=== PATIENT | female | born 2000 | race Caucasian/White ===

== ENCOUNTER 2021-02-07 04:35 | Emergency (ER) | payer MEDICAID ==
--- NOTE | 2021-02-07 05:38 | EDM.PDOC ---
ED HPI GENERAL MEDICAL PROBLEM - General Chief Complaint: General Stated Complaint: abd pain Time Seen by Provider: 02/07/21 05:09 Source of Information: Reports: Patient, Significant Other History Limitations: Reports: No Limitations - History of Present Illness INITIAL COMMENTS - FREE TEXT/NARRATIVE: Patient presents with pain in the middle to upper abdomen that started yesterday afternoon but escalated to 10/10 during the night, about 2 hours ago. She got up and vomited once. That helped some and then on the way here it improved a little more. Pain is now 5/5 and she is not having any more nausea or vomiting. She is 5 months into her first . She denies bleeding or spotting. She says the has been going very well and she hasn't had any problems. She had a routine ultrasound about 10 days ago. For the last few weeks she feels the baby move frequently and that is continuing as normal, currently. Appetite has been good and she ate as usual last night. She denies fever, dysuria, diarrhea or constipation. Abdomen Pain Score (Numeric/FACES): 5 - Related Data Allergies Allergy/AdvReac Type Severity Reaction Status Date / Time No Known Allergies Allergy Verified 02/07/21 04:43 Past Medical History HEENT History: Reports: None Cardiovascular History: Reports: Other (See Below) Other Cardiovascular History: Heart palpitations for about a year on Metoprolol Respiratory History: Reports: None Gastrointestinal History: Reports: None Genitourinary History: Reports: None [employer]OYEE [employer] History: Reports: Musculoskeletal History: Reports: None Neurological History: Reports: None Psychiatric History: Reports: None Endocrine/Metabolic History: Reports: None Hematologic History: Reports: None Oncologic (Cancer) History: Reports: None Dermatologic History: Reports: None - Infectious Disease History Infectious Disease History: Reports: None - Past Surgical History Head Surgeries/Procedures: Reports: None HEENT Surgical History: Reports: None Cardiovascular Surgical History: Reports: None Social & Family History - Tobacco Use Tobacco Use Status *Q: Never Tobacco User - Caffeine Use Caffeine Use: Reports: Soda - Recreational Drug Use Recreational Drug Use: No ED ROS GENERAL - Review of Systems Review Of Systems: See Below Constitutional: Denies: Fever, Chills, Malaise, Weakness HEENT: Denies: Throat Pain, Vision Change Respiratory: Denies: Shortness of Breath, Cough Cardiovascular: Denies: Chest Pain, Lightheadedness, Syncope GI/Abdominal: Reports: Abdominal Pain, Vomiting (once). Denies: Constipation, Diarrhea, Nausea (gone now) : Denies: Dysuria, Flank Pain, Hematuria Musculoskeletal: Reports: No Symptoms Skin: Denies: Cyanosis, Jaundice, Mottled, Pallor, Diaphoresis Neurological: Denies: Confusion, Dizziness, Headache, Seizure, Syncope, Trouble Speaking, Difficulty Walking Psychiatric: Denies: Agitation, Anxiety, Confusion ED EXAM, GENERAL - Physical Exam Exam: See Below Exam Limited By: No Limitations General Appearance: Alert, WD/WN, No Apparent Distress Eye Exam: Bilateral Eye: EOMI, Normal Inspection, PERRL Ears: Normal External Exam, Hearing Grossly Normal Nose: Normal Inspection, No Blood Throat/Mouth: Normal Inspection, Normal Lips, Normal Voice, No Airway Compromise Head: Atraumatic, Normocephalic Neck: Normal Inspection, Full Range of Motion Respiratory/Chest: No Respiratory Distress, Lungs Clear, Normal Breath Sounds Cardiovascular: Regular Rate, Rhythm, No Murmur GI/Abdominal: Normal Bowel Sounds, Soft, No Organomegaly, No Distention, No Abnormal Bruit, Tender (to palpation in periumbilical and lateral abdomen nonsp ecifically.), Other (gravid abdomen consistent with stated gestational age.) Back Exam: Normal Inspection, Full Range of Motion. No: CVA Tenderness (L), CVA Tenderness (R) Extremities: Normal Inspection, Normal Range of Motion, Non-Tender Neurological: Alert, Oriented, Normal Cognition, No Motor/Sensory Deficits Psychiatric: Normal Affect, Normal Mood Skin Exam: Warm, Dry, Intact, Normal Color, No Rash Course - Vital Signs Last Recorded V/S: Last Vital Signs Temp 97.3 F 02/07/21 04:40 Pulse 82 02/07/21 05:03 Resp 16 02/07/21 05:03 BP 98/51 L 02/07/21 05:03 Pulse Ox 99 02/07/21 05:03 - Re-Assessments/Exams Free Text/Narrative Re-Assessment/Exam: 02/07/21 05:54 We discussed findings. She is feeling significantly improved from the worst pain and is not nauseated now. With no ultrasound available we discussed options. She has been going to [place] for OB and [place] for PCP. She came here tonight since it was a little closer in the middle of the night. For emergent US we can send to [place] or [place]. We also called [facility] to see if they have US in the ER; it is available. After discussion of options, patient and her wish to go home and call their OB doctor when clinic opens to get ultrasound or at least see what she recommends. If pain worsens in the mean time they will go directly to [place] ER. Patient appears stable and not in distress currently, so I feel this is an appropriate and reasonable decision. Departure - Departure Time of Disposition: 05:34 Disposition: Home, Self-Care 01 Condition: Good Clinical Impression: Second trimester Abdominal pain Qualifiers: Abdominal location: periumbilical Qualified Code(s): R10.33 - Periumbilical pain - Discharge Information Instructions: Abdominal Pain During , [id number] Additional Instructions: Drink 8 cups of water daily. Call your OB provider when the clinic opens this morning to see what she advises. If worsening before clinic opens go to ER with ultrasound, [place], [place] or [place]. Sepsis Event Note (ED) - Evaluation Sepsis Screening Result: No Definite Risk - Focused Exam Vital Signs: Vital Signs Temp Pulse Resp BP Pulse Ox 02/07/21 05:03 82 16 98/51 L 99 02/07/21 04:40 97.3 F 100 16 109/62 99
== END 2021-02-07 05:50 | disposition home or self-care (01) ==
LOC: KA.ED 04:35
DX: O99.891 Other specified diseases and conditions complicating pregnancy (principal); R10.33 Periumbilical pain
CPT/HCPCS: 99283